=== PATIENT | female | born 1965 | race Caucasian/White ===

== ENCOUNTER 2016-07-31 16:45 | Emergency (ER) | payer OTHER ==
[2016-07-31 17:12] VITALS: BP 122/68; PULSE 71; TEMP 98; BMI 28.3
[2016-07-31] MEDS ORDERED: IBUPROFEN 600 MG TABLET (FP) PO ONE ×2 (18:06→18:08)
--- NOTE | 2016-07-31 18:06 | PDOC ---
History of Present Illness - General Chief Complaint: Injury Stated Complaint: RT ANKLE INJURY Time Seen by Provider: 07/31/16 17:53 History Source: Patient Exam Limitations: No Limitations - History of Present Illness Initial Comments: 07/31/16 18:36 Chief complaint: Ankle injury Patient is a 50-year-old female who states she twisted her right ankle today. Denies any other injuries. GENERAL/CONSTITUTIONAL: No fever, weakness. dizziness HEAD, EYES, EARS, NOSE AND THROAT: No change in vision. No ear pain or discharge. No sore throat. CARDIOVASCULAR: No chest pain RESPIRATORY: No shortness of breath or cough GASTROINTESTINAL: No pain, nausea, vomiting, diarrhea or constipation GENITOURINARY: No dysuria MUSCULOSKELETAL: No neck or back pain, +ankle NEUROLOGIC: No headache, vertigo, loss of consciousness, or loss of sensation. GENERAL: The patient is awake, alert, and fully oriented, in no acute distress. HEAD: Normal with no signs of trauma. EYES: Pupils equal, round and reactive to light, sclera anicteric, conjunctiva clear. ENT: pharynx: no erythema, no exudate, uvula midline NECK: supple CHEST: clear, nontender, rr ABD: soft, nontender EXTREMITIES: Right ankle with mild tenderness, tenderness to the right metatarsal, no gross swelling or deformity. Neurovascular intact. Otherwise extremities, normal range of motion, no edema. NEUROLOGICAL: Normal speech SKIN: Warm, Dry Past History - Past Medical History Allergies/Adverse Reactions: Allergies Allergy/AdvReac Type Severity Reaction Status Date / Time No Known Allergies Allergy Verified 07/31/16 17:12 Home Medications: Ambulatory Orders Ibuprofen [Motrin -] 600 mg PO ONCE 02/11/16 Sulfamethoxazole/Trimethoprim [Bactrim Ds -] 1 tab PO BID #14 tablet 02/12/16 - Psycho/Social/Smoking Cessation Hx Suicidal Ideation: No Smoking History: Never smoked Information on smoking cessation initiated: No *Physical Exam - Vital Signs Last Vital Signs Temp Pulse Resp BP Pulse Ox 98 F 71 18 122/68 100 07/31/16 17:09 07/31/16 17:09 07/31/16 17:09 07/31/16 17:09 07/31/16 17:09 Procedures - Splinting Splint Location: Right: Ankle Pre-Proc Neuro Vasc Exam: normal Pre-Made Type: aircast Post-Proc Neuro Vasc Exam: normal *DC/Admit/Observation/Transfer Diagnosis at time of Disposition: Right ankle injury Qualifiers: Encounter type: initial encounter Qualified Code(s): S99.911A - Unspecified injury of right ankle, initial encounter - Discharge Dispostion Disposition: HOME Condition at time of disposition: Stable - Referrals Referrals: Francesca Kay [Primary Care Provider] - Jeff Aguirre MD [Staff Physician] - - Patient Instructions Printed Discharge Instructions: DI for Ankle Pain Additional Instructions: Elevate, wear splint You can apply ice for 20 minutes every 2 hours for the next 2 days Motrin 600 mg every 6 hours for pain. Call the orthopedist tomorrow
== END 2016-07-31 19:42 | disposition home or self-care (01) ==
LOC: JERFT 16:45
PROC: 2W3LX1Z Immobilization of Right Lower Extremity using Splint (ICD-10-PCS; principal; 2016-07-31)
DX: S99.811A Other specified injuries of right ankle, initial encounter (principal); X50.1XXA Overexertion from prolonged static or awkward postures, initial encounter; Y93.89 Activity, other specified; Y92.89 Other specified places as the place of occurrence of the external cause; Y99.8 Other external cause status
CPT/HCPCS: 29125; 73610-TC-RT; 73630-TC-RT; 99281-25

== ENCOUNTER 2016-08-03 17:36 | Emergency (ER) | payer OTHER ==
[2016-08-03 17:54] VITALS: BP 127/73; PULSE 78; TEMP 98.1; BMI 27.7
--- NOTE | 2016-08-03 19:34 | PDOC ---
History of Present Illness - General Chief Complaint: Pain Stated Complaint: TOLD TO RETURN TODAY FOR RT FOOT PAIN Time Seen by Provider: 08/03/16 18:30 - History of Present Illness Initial Comments: 08/03/16 19:28 Patient misunderstood, and felt was told to return to this emergency department for reevaluation of her right ankle sprain. Patient states feels much improved, is use the Ruslan wrap, ibuprofen for pain relief and has been icing. States pain is much less than her experienced 5 days ago. Occurred: reports: last week Past History - Past Medical History Allergies/Adverse Reactions: Allergies Allergy/AdvReac Type Severity Reaction Status Date / Time No Known Allergies Allergy Verified 08/03/16 17:51 Home Medications: Ambulatory Orders Ibuprofen [Motrin -] 600 mg PO ONCE 02/11/16 Sulfamethoxazole/Trimethoprim [Bactrim Ds -] 1 tab PO BID #14 tablet 02/12/16 Other medical history: DENIES - Psycho/Social/Smoking Cessation Hx Suicidal Ideation: No Smoking History: Never smoked Information on smoking cessation initiated: No Hx Alcohol Use: No Drug/Substance Use Hx: No Substance Use Type: None Trauma Specific PMHX - Complaint Specific PMHX Back Injury: No Neck Injury: No Review of Systems - Review of Systems Able to Perform ROS?: Yes Is the patient limited Maltese proficient: Yes Constitutional: Yes: See HPI. No: Symptoms Reported, Malaise HEENTM: No: Symptoms Reported Musculoskeletal: Yes: Symptoms Reported, Joint Pain (mild tenderness to right foot while walking on. States much improved from 5 days ago). No: Muscle Pain Integumentary: No: Symptoms Reported All Other Systems: Reviewed and Negative *Physical Exam - Vital Signs Last Vital Signs Temp Pulse Resp BP Pulse Ox 98.1 F 78 17 127/73 99 08/03/16 17:50 08/03/16 17:50 08/03/16 17:50 08/03/16 17:50 08/03/16 17:50 - Physical Exam General Appearance: Yes: Nourished, Appropriately Dressed. No: Apparent Distress HEENT: positive: MITALI, TMs Normal, Pharynx Normal Neck: positive: Supple Gastrointestinal/Abdominal: positive: Tender, Soft Extremity: positive: Normal Capillary Refill, Normal Inspection, Normal Range of Motion. negative: Tender (no tenderness to the medial or lateral malleolus, no reproduced tenderness to fifth metatarsal or navicular bone. Neurovascular intact to toes.) Integumentary: positive: Normal Color, Dry. negative: Ecchymosis, Bruising Neurologic: positive: visiting nurse II-XII NML intact, Fully Oriented, Alert, Normal Mood/ Affect, Normal Response, Motor Strength 5/5 *DC/Admit/Observation/Transfer Diagnosis at time of Disposition: Sprain of right ankle Qualifiers: Encounter type: subsequent encounter Involved ligament of ankle: unspecified ligament Qualified Code(s): S93.401D - Sprain of unspecified ligament of right ankle, subsequent encounter - Discharge Dispostion Disposition: HOME Condition at time of disposition: Stable Admit: No - Referrals Referrals: Giovanni Samson [Primary Care Provider] - Larry Bruno MD [Staff Physician] - - Patient Instructions Printed Discharge Instructions: DI for Ankle Sprain Additional Instructions: Rest, ice to area on and off for 15 minutes 4-6 times a day Avoid heavy lifting or exercise until pain and swelling is resolved or until further directed Keep area highly elevated to reduce swelling Use splints/Ruslan wrap as directed Followup with orthopedist in one to 2 days if not improving, if significantly improved may wait one week for followup with orthopedist May use ibuprofen 2-200 mg tablets every 6 hours as needed for pain - Post Discharge Activity Work/School Note: Back to Work
== END 2016-08-03 19:33 | disposition home or self-care (01) ==
LOC: JERFT 17:36
DX: S93.401D Sprain of unspecified ligament of right ankle, subsequent encounter (principal); X58.XXXD Exposure to other specified factors, subsequent encounter
CPT/HCPCS: 99281-25

== ENCOUNTER 2016-09-30 12:19 | Emergency (ER) | payer OTHER ==
[2016-09-30 12:39] VITALS: BMI 26.4
[2016-09-30] MEDS ORDERED: ASPIRIN 81 MG CHEWABLE TABLETS PO ONE (12:40)
--- NOTE | 2016-09-30 12:42 | PDOC ---
History of Present Illness <Kathrin Cosby - Last Filed: 09/30/16 13:54> - General History Source: Patient Exam Limitations: No Limitations <AryaFrances - Last Filed: 10/02/16 11:28> - General Chief Complaint: Chest Pain Stated Complaint: CHEST PAIN, BACK PAIN Time Seen by Provider: 09/30/16 12:38 - History of Present Illness Initial Comments: 09/30/16 13:23 The patient is a 51 year old female with a past medical hx of hypothyroidism who presents to the ED complaining of left sided chest pain and SOB for 6 weeks. The patient describes the pain as constant, 9/10, and feels as if it is an injury. She notes the pain is exacerbated with movement and pressure and radiates into her back. She notes dyspnea and dyspnea on exertion.The patient states she saw a PCP on 08/11/16 for her symptoms. She notes she was given an albuterol inhaler and was referred to a Manager Revenue, Dr. Canela. The patient reports she never followed up with the Manager [employer] because she only has emergency insurance and cannot pay for the Manager [employer]. She states she has an appointment in a few days with a Creative [employer] at [place]. The patient denies fever, chills, dysuria, palpitations The patient denies nausea, vomiting, diarrhea Allergies: NKDA Surgical: None Social: Denies alcohol, drug, cigarette use (Kathrin Cosby) Past History <Kathrin Cosby - Last Filed: 09/30/16 13:54> - Psycho/Social/Smoking Cessation Hx Suicidal Ideation: No Smoking History: Never smoked Hx Alcohol Use: No Drug/Substance Use Hx: No Substance Use Type: None <Frances Koenig - Last Filed: 10/02/16 11:28> - Past Medical History Allergies/Adverse Reactions: Allergies Allergy/AdvReac Type Severity Reaction Status Date / Time No Known Allergies Allergy Verified 09/30/16 12:36 Home Medications: Ambulatory Orders Albuterol Sulfate Inhaler - [Ventolin Hfa Inhaler -] 1 - 2 inh PO Q6H PRN Methocarbamol [Robaxin -] 500 mg PO TID PRN #21 tablet 09/30/16 Review of Systems - Review of Systems Able to Perform ROS?: Yes <Kathrin Cosby - Last Filed: 09/30/16 13:54> <Frances Koenig - Last Filed: 10/02/16 11:28> - Review of Systems Comments:: 09/30/16 13:26 GENERAL/CONSTITUTIONAL: No: fever, chills, weakness, loss of appetite. HEAD, EYES, EARS, NOSE AND THROAT: No: change in vision, ear pain, discharge, sore throat, throat swelling. CARDIOVASCULAR: +Chest pain radiating into back. No: lightheadedness, palpitations, syncope RESPIRATORY: +SOB, dyspnea on exertion. No: cough, wheezing, hemoptysis, stridor. GASTROINTESTINAL: No: nausea, vomiting, abdominal cramping, diarrhea, rectal bleeding, constipation. GENITOURINARY: No: dysuria, hematuria, frequency, urgency, flank pain. MUSCULOSKELETAL: No: neck pain, joint pain, muscle swelling or pain SKIN: No: lesions, pallor, rash or easy bruising. NEUROLOGIC: No: headache, vertigo, paresthesias, weakness ENDOCRINE: No: unexplained weight gain or loss HEMATOLOGIC/LYMPHATIC: No: anemia, easy bleeding, swelling nodes (Ann-MariemoiseKathrin ) *Physical Exam <Kathrin Cosby - Last Filed: 09/30/16 13:54> <Frances Koenig - Last Filed: 10/02/16 11:28> - Vital Signs Last Vital Signs Temp Pulse Resp BP Pulse Ox 97.8 F 63 16 112/71 100 09/30/16 15:22 09/30/16 15:22 09/30/16 15:22 09/30/16 15:22 09/30/16 15:22 - Physical Exam Comments: 09/30/16 13:26 GENERAL: The patient is in no acute distress. HEAD: Normal with no signs of trauma. EYES: PERRLA, EOMI, sclera anicteric, conjunctiva clear. ENT: Ears normal, nares patent, oropharynx clear without exudates. Moist mucous membranes. NECK: Normal range of motion, supple without lymphadenopathy, JVD, or masses. LUNGS: Breath sounds equal, clear to auscultation bilaterally. No wheezes, and no crackles. HEART:+Tenderness to palpation of the left sided chest. Regular rate and rhythm , normal S1 and S2 without murmur, rub or gallop. ABDOMEN: Soft, nontender, normoactive bowel sounds. No guarding, no rebound. EXTREMITIES: Normal range of motion, no edema. No clubbing or cyanosis. No erythema, or tenderness. NEUROLOGICAL: Cranial nerves II through XII grossly intact. Normal speech. No focal neurological deficits. MUSCULOSKELETAL: Back nontender to palpation, no CVA tenderness SKIN: Warm, Dry, normal turgor, no rashes or lesions noted. (Kathrin Cosby) Heart Score/ECG Review <Kathrin Cosby - Last Filed: 09/30/16 13:54> #1 ECG reviewed & interpreted by me at: 15:21 <Frances Koenig - Last Filed: 10/02/16 11:28> #1 09/30/16 15:21 Twelve-lead EKG was performed and reviewed by me. There is normal sinus rhythm with a normal rate of 75 bpm. The axis is normal. The intervals are normal - pr: 150ms, QRS:96ms, QTc:448ms. RSR' v1,v2. There are no ST or T wave abnormalities. (Frances Koenig) ED Treatment Course - LABORATORY CBC & Chemistry Diagram: 09/30/16 13:25 09/30/16 12:51 <Kathrin Cosby - Last Filed: 09/30/16 13:54> - LABORATORY CBC & Chemistry Diagram: 09/30/16 13:25 09/30/16 12:51 <Frances Koenig - Last Filed: 10/02/16 11:28> - ADDITIONAL ORDERS Additional order review: 09/30/16 13:25 RBC 3.87 MCV 95.9 MCHC 33.2 RDW 13.8 MPV 8.9 Neutrophils % 41.9 L Lymphocytes % 47.7 H Monocytes % 8.4 Eosinophils % 1.6 Basophils % 0.4 - RADIOLOGY Radiology Studies Ordered: Category Date Time Status CHEST X-RAY PORTABLE* [RAD] Stat Radiology 09/30/16 12:41 Completed Radiograph Interpretation: 09/30/16 13:54 AP portable chest: Chest pain A single view reveals a normal mediastinum, clear lungs and sharp angles. The bones and soft tissues are intact. There are no prior studies for comparison. Impression: No acute pathology. No comparison studies. Reported By: Cornell Lopez MD 09/30/16 1851 (Kathrin Cosby) - Medications Given in the ED: ED Medications Discontinued Medications Generic Name Dose Route Start Last Admin Trade Name Jarocho PRN Reason Stop Dose Admin Acetaminophen 975 mg 09/30/16 14:17 09/30/16 15:15 Tylenol - PO 09/30/16 14:18 975 mg ONCE ONE Administration Aspirin 162 mg 09/30/16 12:40 09/30/16 13:11 Asa - PO 09/30/16 12:41 Not Given ONCE ONE Methocarbamol 500 mg 09/30/16 14:17 09/30/16 15:15 Robaxin - PO 09/30/16 14:18 500 mg ONCE ONE Administration Medical Decision Making <Kathrin Cosby - Last Filed: 09/30/16 13:54> <Frances Koenig - Last Filed: 10/02/16 11:28> - Medical Decision Making 09/30/16 12:41 A portion of this note was documented by scribe services under my direction. I have reviewed the details of the note, within reason, and agree with the documentation with the following case summary and management plan written by me. Nursing documentation reviewed and incorporated into medical decision making 09/30/16 13:39 This is a 51 yo F with a history of hypothyroidism, recent diagnosis of elevated protein (undergoing a hematology work up, pt is supposed to follow up at [facility], missed her appointment rescheduled for this month) Pt has had chest pain x almost 2 months It feels to her as though she has an injury Chest pain present all the time and worsens with palpation of the chest wall Chest pain radiates to the back No shortness of breath No fevers or chills No cough CXR nml 09/30/16 14:10 Laboratory Tests 09/30/16 09/30/16 12:51 13:25 WBC 4.8 Hgb 12.3 Hct 37.1 Plt Count 197 Neutrophils % 41.9 L Lymphocytes % 47.7 H BUN 14 D Creatinine 0.6 Creatine Kinase 280 H Troponin I 0.03 09/30/16 14:16 Laboratory Tests 09/30/16 12:51 INR 1.03 09/30/16 14:37 Laboratory Tests 09/30/16 12:51 D-Dimer < 200 D dimer negative PE unlikely given nml vitals and chronicity of symptoms ACS unlikely given negative trop and 2 months of symptoms constantly Pt now states, she has tightness in her trapezius muscles bilaterally I have encouraged pt to follow up with Cardiology as she was instructed to do by her PMD I have also encouraged her to keep her follow up with Hematology at [facility] ( already scheduled) 09/30/16 14:48 Return to the ER for any other concerns or complaints Pt encouraged to review copies of her labs from today (Frances Koenig) *DC/Admit/Observation/Transfer <Kathrin Cosby - Last Filed: 09/30/16 13:54> - Discharge Dispostion Admit: No <Frances Koenig - Last Filed: 10/02/16 11:28> Diagnosis at time of Disposition: Chest pain Qualifiers: Chest pain type: unspecified Qualified Code(s): R07.9 - Chest pain, unspecified - Discharge Dispostion Disposition: HOME Condition at time of disposition: Improved - Prescriptions Prescriptions: Methocarbamol [Robaxin -] 500 mg PO TID PRN #21 tablet PRN Reason: Pain - Patient Instructions Printed Discharge Instructions: DI for Chest Pain, DI for Atypical Chest Pain Additional Instructions: Elle por venir a la stephanie de emergencias Por favor mantenga shaw citas de seguimiento Tambin realice el seguimiento con Cardiologa segn lo recomendado por bates m dico de Atencin Primaria Por favor tome motrin o tylenol para el dolor Revise shaw laboratorios Regrese al ER para cualquier otra preocupacin o queja Thank you for coming to the ER Please keep your follow up appointments Please also follow up with Cardiology as recommended by your Primary Care physician Please take motrin or tylenol for pain Please review your labs Return to the ER for any other concerns or complaints - Post Discharge Activity Work/School Note: Back to Work - Attestations Scribe Attestion: 09/30/16 13:22 Documentation prepared by Ktahrin Cosby, acting as medical reception for Frances Koenig MD/. (Kathrin Cosby)
[2016-09-30] MEDS ORDERED: ASPIRIN 81 MG CHEWABLE TABLETS ONE (12:53)
[2016-09-30 13:43] LABS: BASOPHIL 0.4 % (0-2.0); EOSINOPHIL 1.6 % (0-4.5); MCH 31.8 pg (25.7-33.7); MCHC 33.2 g/dl (32.0-36.0); MEAN CELL VOLUME 95.9 fl (80-96); MEAN PLT VOLUME 8.9 fl (7.5-11.1); NEUTROPHILS 41.9 % (42.8-82.8); PLATELET COUNT 197 K/MM3 (134-434); RDW 13.8 % (11.6-15.6); WHITE BLOOD COUNT 4.8 K/mm3 (4.0-10.0)
[2016-09-30 14:03] LABS: ALBUMIN 3.6 g/dl (3.4-5.0); ANION GAP 8 (8-16); CALCIUM 8.8 mg/dL (8.5-10.1); CO2 28 mmol/L (21-32); CREATININE 0.6 mg/dL (0.55-1.02); GLUCOSE,RANDOM 99 mg/dL (74-106); SGOT/AST 22 U/L (15-37); SGPT/ALT 24 U/L (12-78)
[2016-09-30 14:06] LABS: INR 1.03 (0.82-1.09); PROTHROMBIN TIME (PATIENT) 11.3 SEC (9.98-11.88)
[2016-09-30 14:07] LABS: ALK PHOS 97 U/L (45-117); BILIRUBIN,TOTAL 0.6 mg/dL (0.2-1.0); TOT PROT 9.8 g/dl (6.4-8.2); TROPONIN I 0.03 ng/ml (0.00-0.05)
[2016-09-30] MEDS ORDERED: METHOCARBAMOL 500 MG TABLET PO ONE (14:17)
[2016-09-30] MEDS ORDERED: ACETAMINOPHEN 325 MG TABLET (FP) PO ONE (14:17)
[2016-09-30] MEDS ORDERED: ACETAMINOPHEN 325 MG TABLET (FP) ONE (15:12)
[2016-09-30] MEDS ORDERED: METHOCARBAMOL 500 MG TABLET ONE (15:13)
[2016-09-30 15:24] VITALS: BP 112/71; PULSE 63; TEMP 97.8
--- NOTE | 2016-10-01 20:34 | EKG ---
Test Reason : Blood Pressure : / mmHG Vent. Rate : 075 BPM Atrial Rate : 075 BPM P-R Int : 150 ms QRS Dur : 096 ms QT Int : 402 ms P-R-T Axes : 035 030 047 degrees QTc Int : 448 ms NORMAL SINUS RHYTHM INCOMPLETE RIGHT BUNDLE BRANCH BLOCK BORDERLINE ECG NO PREVIOUS ECGS AVAILABLE Confirmed by SIMON LIU MD ([id number]) on 10/01/2016 8:34:41 PM Referred By: Confirmed By:SIMON LIU MD
== END 2016-09-30 15:23 | disposition home or self-care (01) ==
LOC: JER 12:19
DX: R07.9 Chest pain, unspecified (principal); E03.9 Hypothyroidism, unspecified
CPT/HCPCS: 36415; 71010-TC; 80053; 82550; 82553; 84484; 85025; 85379; 85610; 93005; 93010; 99283-25

== ENCOUNTER 2016-10-06 09:00 | Emergency (ER) | payer OTHER ==
[2016-10-06 09:10] VITALS: BP 127/75; PULSE 78; TEMP 98; BMI 27.9
[2016-10-06] MEDS ORDERED: IBUPROFEN 600 MG TABLET (FP) PO ONE ×2 (10:31→10:35)
--- NOTE | 2016-10-06 10:31 | PDOC ---
History of Present Illness - General Chief Complaint: Pain Stated Complaint: LT SIDE PAIN Time Seen by Provider: 10/06/16 09:35 History Source: Patient Exam Limitations: No Limitations, Language Barrier (Teresa, the RN, was utilized as a manager case. ) - History of Present Illness Initial Comments: CHIEF COMPLAINT: 51 y/o afebrile female with PMH hypothyroidism c/o left sided back pain for the past 2 days. 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 She states 2 days ago she thinks she hurt the left side of her back while working. It hurts more with movement. She took 400mg of ibuprofen with some relief last night. She denies f/c, n/v/d, CP, SOB, abd pain, hematuria, dysuria. Vital signs on arrival are within normal limits. REVIEW OF SYSTEMS: GENERAL/CONSTITUTIONAL: No fever/chills. No weakness. No weight change. HEAD, EYES, EARS, NOSE AND THROAT: No change in vision. No ear pain or discharge. No sore throat. CARDIOVASCULAR: No chest pain or shortness of breath. RESPIRATORY: No cough, wheezing, or hemoptysis. GASTROINTESTINAL: No abd pain, nausea, vomiting, diarrhea. GENITOURINARY: No dysuria, frequency, or change in urination. MUSCULOSKELETAL: No joint or muscle swelling or pain. No neck pain. +left sided back pain SKIN: No rash or easy bruising. NEUROLOGIC: No headache, vertigo, loss of consciousness, or loss of sensation. PHYSICAL EXAM: GENERAL: The patient is awake, alert, and fully oriented, in no acute distress. She is well appearing and ambulatory. HEAD: Normal with no signs of trauma. CV: RRR, S1/S2, no MRG. Cap refill < 2 sec. CHEST WALL: TTP of anterior chest wall. ABDOMEN: Soft, non-distended, non-tender even to deep palpation, no hepatomegaly or splenomegaly, no masses. BACK: No CVA TTP b/l. No flank pain. Reproducible back pain with palpation of left lumbar paravertebral muscles. Pain with certain movements of lumbar spine. Full flexion and extension of lumbar spine. No midline lumbar spine TTP or step offs. EXTREMITIES: Normal range of motion, no edema. NEUROLOGICAL: Normal speech, normal gait. CN II-XII grossly intact. SKIN: Warm, dry, normal turgor, no rashes or lesions noted. Past History - Past Medical History Allergies/Adverse Reactions: Allergies Allergy/AdvReac Type Severity Reaction Status Date / Time No Known Allergies Allergy Verified 10/06/16 09:02 Home Medications: Ambulatory Orders Albuterol Sulfate Inhaler - [Ventolin Hfa Inhaler -] 1 - 2 inh PO Q6H PRN Methocarbamol [Robaxin -] 500 mg PO TID PRN #21 tablet 09/30/16 Thyroid Disease: Yes - Psycho/Social/Smoking Cessation Hx Anxiety: No Suicidal Ideation: No Smoking History: Never smoked Have you smoked in the past 12 months: No Information on smoking cessation initiated: No Hx Alcohol Use: No Drug/Substance Use Hx: No Substance Use Type: None *Physical Exam - Vital Signs Last Vital Signs Temp Pulse Resp BP Pulse Ox 98.0 F 78 18 127/75 100 10/06/16 09:03 10/06/16 09:03 10/06/16 09:03 10/06/16 09:03 10/06/16 09:03 Medical Decision Making - Medical Decision Making A/P: 51 y/o female with muscular low back pain 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 Plan is as follows: 1. UA/culture 2. PO motrin Instructed the patient to take 600mg of ibuprofen every 6 hours with food for pain, use heating pad and stretch her back hourly. Suggested she refrain from working for a few days and avoid heavy lifting/pushing/pulling. The patient was instructed to return to the ER with any worsening or concerning symptoms. The patient verbalizes understanding of all instructions, has no further questions and is awaiting discharge. *DC/Admit/Observation/Transfer Diagnosis at time of Disposition: Low back pain Qualifiers: Chronicity: acute Back pain laterality: left Sciatica presence: without sciatica Qualified Code(s): M54.5 - Low back pain - Discharge Dispostion Disposition: HOME Condition at time of disposition: Improved - Referrals Referrals: Geraldine Stewart RN [Primary Care Provider] - Call tomorrow - Patient Instructions Printed Discharge Instructions: DI for Low Back Pain Additional Instructions: Discharge Instructions: -Take 600mg of Ibuprofen every 6 hours with food for pain -Stretch your back hourly -Use heating pad to promote healing -Avoid heaving lifting/pushing/pulling until feeling better -Follow up with your doctor within 1 week -Return to the ER with any worsening or concerning symptoms. Print Language: SLOVAK - Post Discharge Activity Work/School Note: Back to Work
[2016-10-06 10:49] LABS: URINE APPEARANCE CLEAR; URINE BILIRUBIN NEGATIVE (NEGATIVE); URINE COLOR COLORLESS; URINE GLUCOSE (UA) NEGATIVE (NEGATIVE); URINE KETONE NEGATIVE (NEGATIVE); URINE LEUK ESTERASE NEGATIVE (NEGATIVE); URINE NITRITE NEGATIVE (NEGATIVE); URINE PROTEIN NEGATIVE (NEGATIVE); URINE UROBILINOGEN NEGATIVE E.U./dl (0.2-1.0)
[2016-10-06 11:02] LABS: URINE BLOOD 1+ (NEGATIVE)
== END 2016-10-06 11:26 | disposition home or self-care (01) ==
LOC: SUPCPDRO 09:00 → JER 09:00
DX: M54.5 Low back pain (principal); X58.XXXA Exposure to other specified factors, initial encounter; Y93.89 Activity, other specified; Y92.89 Other specified places as the place of occurrence of the external cause; Y99.0 Civilian activity done for income or pay
CPT/HCPCS: 81003; 81015; 87086; 99282-25